=== PATIENT | female | born 1990 | race Caucasian/White ===

== ENCOUNTER 2023-04-12 06:53 | Inpatient (IN) | payer OTHER ==
[2023-04-12 08:03] VITALS: BMI 28.7
[2023-04-12 08:24] LABS: INR 0.92 (0.83-1.09); PROTHROMBIN TIME (PATIENT) 10.7 SEC (9.7-13.0)
[2023-04-12 08:27] LABS: ACTIVATED PTT 24.2 SECONDS (25.2-36.5)
[2023-04-12] MEDS: ELECTROLYTE-148 SOLN 1,000 ML IV SCH (08:30)
[2023-04-12 08:38] LABS: BASO % 0.4 % (0-2.0); EOS % 1.7 % (0-4.5); HEMATOCRIT 37.5 % (32.4-45.2); HEMOGLOBIN 13.4 GM/dL (10.7-15.3); LYMPH % 16.8 % (8-40); MCH 32.4 pg (25.7-33.7); MCHC 35.7 g/dl (32.0-36.0); MEAN CELL VOLUME 90.8 fl (80-96); MEAN PLT VOLUME 8.9 fl (7.5-11.1); MONO % 6.4 % (3.8-10.2); NEUT % 74.7 % (42.8-82.8); PLATELET COUNT 164 10^3/uL (134-434); RBC 4.13 M/mm3 (3.60-5.2); RDW 13.9 % (11.6-15.6); WHITE BLOOD COUNT 9.1 K/mm3 (4.0-10.0)
[2023-04-12] MEDS ORDERED: OXYTOCIN 30 UNITS in 0.9% NS 30 UNIT/500 ML INFUS.BAG IVPB ONE (09:17)
[2023-04-12 09:49] LABS: BLOOD UREA NITROGEN 5.3 mg/dL (7-18); CALCIUM 8.7 mg/dL (8.5-10.1)
[2023-04-12 09:50] LABS: POTASSIUM 3.9 mmol/L (3.5-5.1)
[2023-04-12] MEDS: OXYTOCIN 30 UNITS in 0.9% NS 30 UNIT/500 ML INFUS.BAG IVPB SCH (09:50)
[2023-04-12 09:53] LABS: CREATININE 0.4 mg/dL (0.55-1.3)
[2023-04-12] MEDS ORDERED: FENTANYL/BUPIVACAINE/NS/PF - PCEA - 50 ML DISP.SYRIN EP ONE (18:54)
[2023-04-12] MEDS: FENTANYL/BUPIVACAINE/NS/PF - PCEA - 50 ML DISP.SYRIN EP SCH (19:45)
[2023-04-12] MEDS ORDERED: NALOXONE HCL 0.4 MG/ML VIAL IVPUSH PRN (19:53)
[2023-04-12] MEDS ORDERED: OXYTOCIN 20 UNITS in 0.9% NS 20 UNIT/1,000 ML INFUS.BAG IV ONE (22:01)
[2023-04-12] MEDS: OXYTOCIN 20 UNITS in 0.9% NS 20 UNIT/1,000 ML INFUS.BAG IV SCH (22:14)
[2023-04-12] MEDS ORDERED: BISACODYL 10 MG SUPP.RECT RC PRN (22:26)
[2023-04-12] MEDS ORDERED: ACETAMINOPHEN 325 MG TABLET (FP) PO PRN (22:26)
[2023-04-12] MEDS ORDERED: METHYLERGONOVINE MALEATE 0.2 MG/1 ML AMP IM PRN (22:26)
[2023-04-12] MEDS ORDERED: BENZOCAINE 28 GM HEMORRHOIDAL OINTMENT TP PRN (22:26)
[2023-04-12] MEDS ORDERED: oxyCODONE HCL 5 MG TABLET PO PRN (22:26)
[2023-04-12] MEDS ORDERED: WITCH HAZEL 50% (TUCKS) 40 PAD/JAR PAD TP PRN (22:26)
[2023-04-12] MEDS ORDERED: BENZOCAINE 20% 57 GM BOTTLE TP PRN (22:26)
[2023-04-13] MEDS ORDERED: IBUPROFEN 600 MG TABLET (FP) PO ONE (01:51)
[2023-04-13] MEDS: IBUPROFEN 600 MG TABLET (FP) PO PRN (01:55)
[2023-04-13 08:28] LABS: BASO % 0.2 % (0-2.0); EOS % 0.5 % (0-4.5); HEMOGLOBIN 12.6 GM/dL (10.7-15.3); LYMPH % 12.7 % (8-40); MCH 31.2 pg (25.7-33.7); MCHC 33.9 g/dl (32.0-36.0); MEAN PLT VOLUME 9.4 fl (7.5-11.1); MONO % 5.4 % (3.8-10.2); NEUT % 81.2 % (42.8-82.8); PLATELET COUNT 156 10^3/uL (134-434); RBC 4.03 M/mm3 (3.60-5.2); RDW 13.8 % (11.6-15.6); WHITE BLOOD COUNT 12.4 K/mm3 (4.0-10.0)
[2023-04-13] MEDS: PRENATAL VITAMINS W/ FOLIC ACID TABLET (FP) PO SCH (10:30)
[2023-04-14] MEDS: SENNOSIDES/DOCUSATE COMBO (SENNA PLUS) TABLET (UD) PO PRN (07:33)
[2023-04-14 10:47] VITALS: BP 106/62; PULSE 63; RESP 17; TEMP 97.7
== END 2023-04-14 13:20 | disposition home or self-care (01) | DRG 807 ==
LOC: JLDR 06:53 → J3W 04-13 01:05
PROVIDERS: ADMIT Obstetrics & Gynecology; ATTEND Obstetrics & Gynecology
PROC: 10E0XZZ Delivery of Products of Conception, External Approach (ICD-10-PCS; principal; 2023-04-12)
PROC: 0W8NXZZ Division of Female Perineum, External Approach (ICD-10-PCS; 2023-04-12)
PROC: 0HQ9XZZ Repair Perineum Skin, External Approach (ICD-10-PCS; 2023-04-12)
DX: O70.0 First degree perineal laceration during delivery (principal); Z37.0 Single live birth; Z3A.39 39 weeks gestation of pregnancy
CPT/HCPCS: 36415; 80048; 85025; 85461; 85610; 85730; 86780; 86850; 86870; 86880; 86900; 86901; 86902

== ENCOUNTER 2023-06-19 04:50 | Day surgery (SDC) | payer OTHER ==
[2023-06-15 08:40] VITALS: BMI 24.3
[2023-06-19] MEDS ORDERED: LIDOCAINE HCL/PF 2% SDV 5ML VIAL ONE (08:19)
[2023-06-19] MEDS ORDERED: PROPOFOL 20 ML ONE (08:20)
[2023-06-19] MEDS ORDERED: ROCURONIUM BROMIDE 50 MG/5 ML SYRINGE ONE (08:20)
[2023-06-19] MEDS ORDERED: MIDAZOLAM HCL 2 MG/2 ML SINGLE DOSE VIAL ONE (08:20)
[2023-06-19] MEDS ORDERED: SUCCINYLCHOLINE CHLORIDE 200 MG/10 ML SYRINGE ONE (08:20)
[2023-06-19] MEDS ORDERED: FENTANYL CITRATE/PF 50 MCG/ML VIAL ONE (08:20)
[2023-06-19] MEDS ORDERED: IBUPROFEN 600 MG TABLET (FP) PO PRN (09:07)
[2023-06-19] MEDS ORDERED: ACETAMINOPHEN 325 MG TABLET (FP) PO PRN (09:07)
[2023-06-19] MEDS: ceFAZolin SODIUM 1 GM VIAL IVPB ONE (09:32)
[2023-06-19] MEDS ORDERED: DEXAMETHASONE SOD PHOSPHATE 4 MG/1 ML VIAL ONE (09:33)
[2023-06-19] MEDS ORDERED: ceFAZolin SODIUM 1 GM VIAL ONE (09:33)
[2023-06-19] MEDS ORDERED: KETOROLAC TROMETHAMINE 30 MG/1 ML VIAL ONE (10:19)
[2023-06-19] MEDS ORDERED: ONDANSETRON 4 MG/2 ML VIAL ONE (10:19)
[2023-06-19] MEDS ORDERED: NEOSTIGMINE METHYLSULFATE 0.5 MG/1 ML - 10 ML MDV ONE (10:22)
[2023-06-19] MEDS ORDERED: GLYCOPYRROLATE 0.2 MG/1 ML VIAL ONE (10:22)
[2023-06-19] MEDS: BUPIVACAINE HCL/PF 0.5% (5MG/ML) 10 ML VIAL IJ ONE (10:30)
[2023-06-19] MEDS: ACETAMINOPHEN 1000 MG/100 ML BAG IVPB ONE (10:45)
[2023-06-19] MEDS: ACETAMINOPHEN INJECTION 100 ML IVPB ONE (10:45)
[2023-06-19] MEDS ORDERED: oxyCODONE HCL 5 MG TABLET PO PRN ×2 (11:02)
[2023-06-19] MEDS ORDERED: PROMETHAZINE HCL 25 MG/1 ML VIAL IVPB PRN (11:02)
[2023-06-19] MEDS ORDERED: ONDANSETRON 4 MG/2 ML VIAL IVPUSH PRN (11:02)
[2023-06-19] MEDS ORDERED: LACTATED RINGERS SOLUTION 1,000 ML IV SCH (11:15)
[2023-06-19 12:07] VITALS: TEMP 97.5
[2023-06-19 14:25] VITALS: BP 103/59; PULSE 87; RESP 18
== END 2023-06-19 14:50 | disposition home or self-care (01) ==
LOC: JASU-SURG 04:50
PROVIDERS: ATTEND Obstetrics & Gynecology
PROC: 0UB74ZZ Excision of Bilateral Fallopian Tubes, Percutaneous Endoscopic Approach (ICD-10-PCS; principal; 2023-06-19 09:00)
DX: Z30.2 Encounter for sterilization (principal); T83.32XA Displacement of intrauterine contraceptive device, initial encounter
CPT/HCPCS: 81025; 88304-TC; 88305-TC; 94760; J0131